=== PATIENT | female | born 1970 | race African-American/Black ===

== ENCOUNTER 2019-09-13 02:57 | Emergency (ER) | payer SELFPAY ==
[~2019-09-13] VITALS: Ht 157.5 cm; Wt 66.7 kg
[2019-09-13 03:54] VITALS: BP 137/66
== END 2019-09-13 07:30 | disposition left against medical advice (07) ==
LOC: ER 02:59
DX: N93.9 Abnormal uterine and vaginal bleeding, unspecified (principal); D25.9 Leiomyoma of uterus, unspecified; Z53.29 Procedure and treatment not carried out because of patient's decision for other reasons